=== PATIENT | male | born 2005 | race Hispanic/Latino ===

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

== ENCOUNTER 2023-01-14 17:41 | Emergency (ER) | payer OTHER | END 2023-01-14 18:50 | disposition home or self-care (01) | LOC: CSHERS 17:41 | DX: M25.571 Pain in right ankle and joints of right foot (principal); X50.1XXA Overexertion from prolonged static or awkward postures, initial encounter; Y93.66 Activity, soccer | CPT/HCPCS: 99283 ==

== ENCOUNTER 2023-11-14 22:40 | Emergency (ER) | payer OTHER, SELFPAY | END 2023-11-14 23:20 | disposition home or self-care (01) | LOC: CSHERS 22:40 | DX: K04.7 Periapical abscess without sinus (principal) | CPT/HCPCS: 99282 ==

== ENCOUNTER 2024-06-10 21:05 | Emergency (ER) | payer SELFPAY ==
[2024-06-10] MEDS ORDERED: Ondansetron PF 4 MG/2 ML Vial ONE (21:22)
[2024-06-10 22:14] LABS: #Basophils 0.04 10x3/uL (0.0-0.2); #Eosinphils 0.04 10x3/uL (0.0-0.5); #Monocytes 0.55 10x3/uL (0.0-1.1); #Neutrophils 3.46 10x3/uL (1.5-8.4); %Basophils 0.8 % (0.0-2.0); %Eosinophils 0.8 % (0.0-6.0); %Lymphocytes 15.1 % (18.0-47.0); %Monocytes 11.4 % (0.0-10.0); %Neutrophils 71.7 % (40.0-75.0); Hematocrit 43.6 % (38.8-50.0); Hemoglobin 15.5 g/dL (13.5-17.5); Mean Corpuscular HGB CONC 35.6 g/dL (32.0-36.0); Mean Corpuscular Hemoglobin 31.6 pg (27.0-33.0); Mean Corpuscular Volume 88.8 fL (81.2-95.1); Mean Platelet Volume 10.3 fL (7.4-10.4); Platelet Count 189 10x3/uL (150-450); RBC Distribution Width 11.9 % (11.5-14.5); Red Blood Cell (RBC) Count 4.91 10x6/uL (4.32-5.72); White Blood Cell (WBC) Count 4.8 10x3/uL (3.5-10.5)
[2024-06-10 22:38] LABS: ALT (SGPT) 52 U/L (8-55); AST (SGOT) 54 U/L (5-34); Alkaline Phosphatase 77 U/L (50-130); Anion Gap 15 mmol/L (10-20); BUN (Urea Nitrogen) 11 mg/dL (8.9-20.6); Bilirubin, Total 0.4 mg/dL (0.2-1.2); Calc. Creatinine Clearance 0 mL/min (70-130); Calcium 9.4 mg/dL (7.8-10.44); Carbon Dioxide 21 mmol/L (22-29); Chloride 103 mmol/L (98-107); Estimated GFR 111; Globulin 3.9 g/dL (2.4-3.5); Glucose 92 mg/dL (70-105); Protein, Total 7.9 g/dL (6.0-8.3); Sodium 135 mmol/L (136-145)
== END 2024-06-10 23:54 | disposition home or self-care (01) ==
LOC: CSHERS 21:05
DX: R10.84 Generalized abdominal pain (principal); R19.7 Diarrhea, unspecified; Z55.6 Problems related to health literacy
CPT/HCPCS: 80053; 85025; 96361; 96374; J2405